=== PATIENT | female | born 1995 | race Caucasian/White ===

== ENCOUNTER 2017-01-09 12:47 | Emergency (ER) | payer OTHER ==
[~2017-01-09] VITALS: Ht 167.6 cm; Wt 55.9 kg
[2017-01-09 12:49] VITALS: TEMP 36.3; Ht 167.6 cm; Wt 55.9 kg
[2017-01-09] MEDS ORDERED: BCPILLS PO (12:59)
[2017-01-09] MEDS ORDERED: SODIUM CHLORIDE 0.9% 1000ML 1,000 ML IV STA (13:09)
[2017-01-09 13:44] LABS: BASO % 0.1 %; BASO ABS # 0.02 K/uL (0-0.2); COMPLETE YES; EOS % 0.2 %; HEMATOCRIT 43.3 % (37-47); IG% 0.2 %; LYMPH % 13.3 %; LYMPH ABS # 1.88 K/uL (1.2-3.4); MEAN CELL VOLUME 93.9 fL (80-100); MEAN CORPUSCULAR HEMOGLOBIN 31.9 pg (25-34); MEAN CORPUSCULAR HGB CONC 33.9 g/dl (32-36); MEAN PLATELET VOLUME 10.3 fL (7.4-10.4); MONO % 9.8 %; NEUT % 76.4 %; PLATELET COUNT 244 K/uL (130-400); RED BLOOD COUNT 4.61 M/uL (4.2-5.4); WHITE BLOOD COUNT 14.12 K/uL (4.8-10.8)
[2017-01-09 14:04] LABS: BUN/CREATININE RATIO 9.1 (10-20); CALCIUM 9.6 mg/dl (8.5-10.1); POTASSIUM 3.6 mmol/L (3.5-5.1)
[2017-01-09 14:05] LABS: PREG INTERNAL NEGATIVE QC NEG CLEAR BACKGROUND; PREG INTERNAL POSITIVE QC POS CONTROL LINE
[2017-01-09 14:24] LABS: URINE APPEARANCE CLOUDY (CLEAR); URINE BILIRUBIN NEG (NEG); URINE COLOR YELLOW; URINE EPITHELIAL CELL AUTO 20-30 /lpf (0-5); URINE NITRITE NEG (NEG); URINE PH 6.5 (4.5-7.5); URINE SPECIFIC GRAVITY 1.016 (1.000-1.030); UROBILINOGEN NEG (NEG)
[2017-01-09 14:27] LABS: MANUAL MICROSCOPIC REQUIRED? NO; REVIEW REQ? NO
--- NOTE | 2017-01-09 14:29 | DIAGNOSTIC IMAGING REPORT ---
APPENDIX ULTRASOUND HISTORY: Right lower quadrant abdominal pain. COMPARISON: None. FINDINGS: Transabdominal scanning of the right lower quadrant was performed. The appendix was not identified. There are no fluid collections or masses within the right lower quadrant. IMPRESSION: The appendix was not identified. Electronically signed by: Nirav Blackwood M.D. 01/09/2017 2:27 PM Dictated Date/Time: 01/09/2017 2:27 PM
[2017-01-09] MEDS ORDERED: OPTIRAY 320 IV PRN (14:45)
--- NOTE | 2017-01-09 16:28 | DIAGNOSTIC IMAGING REPORT ---
ABDOMEN AND PELVIS CT WITH IV AND ORAL CONTRAST CT DOSE: 343.13 mGy.cm HISTORY: Right lower quadrant abdominal pain. TECHNIQUE: Multiaxial CT images of the abdomen and pelvis were performed following the use of intravenous and oral contrast. COMPARISON STUDY: None. FINDINGS: The liver, gallbladder, spleen, adrenal glands, pancreas, and left kidney are unremarkable. Heterogeneous enhancement within the right kidney with mild perinephric fat stranding. There is also urothelial enhancement within the right renal collecting system and right ureter. These findings are consistent with a pyelonephritis. No hydronephrosis. Duplicated right renal collecting system. No retroperitoneal lymphadenopathy. Trace pelvic free fluid. The bladder, uterus, and ovaries are unremarkable. No bowel wall thickening or obstruction. The visualized appendix is normal in caliber. IMPRESSION: 1. Right-sided pyelonephritis. 2. Normal appendix. 3. No bowel wall thickening or obstruction. 4. Trace pelvic free fluid which may be physiologic. Electronically signed by: Nirav Blackwood M.D. 01/09/2017 4:26 PM Dictated Date/Time: 01/09/2017 4:22 PM
[2017-01-09] MEDS ORDERED: CEFTRIAXONE SOD INJ 1 GM in DEXTROSE 5% ADD-VANTAGE 50ML 50 ML IV STA (16:47)
[2017-01-09] MEDS ORDERED: CEFTRIAXONE SOD INJ 1 GM ADDVIAL ONE (17:08)
[2017-01-09] MEDS ORDERED: IBUPROFEN 600 MG TAB PO STA (17:30)
[2017-01-09 17:43] VITALS: BP 125/84; PULSE 88; O2SAT 99
[2017-01-09] MEDS ORDERED: SULF800T23 PO (17:55)
--- NOTE | 2017-01-09 23:05 | EMERGENCY ROOM VISIT NOTE ---
ED Visit Note First contact with patient: 12:51 Chief Complaint: Abdominal pain. History of Present Illness: Ms. Umanzor is a 21 year-old white female complaining of right lower quadrant abdominal pain. Historically patient reports no significant past medical history or abdominal surgeries Patient reports approximately 2-3 days ago she started experiencing vague abdominal complaints in the periumbilical area. She felt she might have pulled an abdominal muscles with exercise. Yesterday morning approximately 28 hours ago she reports she woke up from sleep and now the pain was focal in the right lower quadrant. Since that time her pain has been constant. She was seen at a local urgent care center prior to arrival at the hospital and was informed she may have an appendicitis and needed to come to the emergency department for further evaluation and abdominal CT scan. Currently patient places her discomfort just superior to McBurney's point. She reports she is not able to describe her discomfort. She rates her discomfort 2/ 10. The pain is nonradiating. Her pain worsens slightly with palpation. She has not identified any alleviating factors related to the pain. She has not taken any medications for pain prior to arrival at the hospital. Associated with her pain she reports yesterday she had fevers and chills and this morning she felt like she had a fever before she came to the ED, she has had a mild decrease in appetite, she has been having intermittent nausea without vomiting and she reports she is not moving her bowels as often is normal and feels she may be constipated. Additionally she reports she's been having some increased urinary frequency but no urinary urgency or burning. Patient denies sweats, skin eruptions, skin color changes, upper respiratory tract symptoms, shortness of breath, chest pain, diarrhea, rectal bleeding, black/tarry stools, hematuria, vaginal discharge, painful in accordance, postcoital bleeding, back/flank pain. Review of Systems: As noted above in history of present illness. All body systems were reviewed and found to be negative as noted above. Past Medical History: Patient denies. Current Medications: control. Allergies to Medications: Patient denies. Social History: Patient is currently in University student; she feels safe in her home environment; she denies tobacco use. Physical Examination: Vital Signs: Date Time Temp Pulse Resp B/P Pulse Ox O2 Delivery O2 Flow Rate FiO2 01/09/17 17:43 88 18 125/84 99 Room Air 01/09/17 15:33 87 18 142/79 99 Room Air 01/09/17 14:50 87 18 150/81 99 Room Air 01/09/17 12:49 36.3 106 18 155/76 94 Room Air GENERAL: 21-year-old female in mild moderate distress due to pain, nontoxic- appearing, afebrile and hemodynamically stable. Patient is very anxious and tearful NEUROLOGICAL: Awake, alert and oriented to person, place and time. Answering questions appropriately and following commands. Normal gait. Good hand eye coordination. SKIN: Warm, dry and pink. No soft tissue eruptions or trauma noted. HEENT: Atraumatic and normocephalic. PERRLA. Sclera white and conjunctiva pink. Oral cavity moist and pink. Pharynx is nonerythematous or edematous. Speech normal. No lymphadenopathy. Trachea midline. No jugular venous distention. BACK: No tenderness over the bony spine. Mild right sided CVA tenderness. THORAX: Lungs sounds are clear to auscultation and equal bilaterally with symmetrical chest wall. No wheezing, rales or rhonchi. No crepitus, tenderness , subcutaneous air or deformities noted. HEART: Regular rate and rhythm. No gallops, rubs or murmurs are appreciated. ABDOMEN: Flat and soft with mild tenderness over McBurney's point. Positive bowel sounds in all quadrants. No guarding, rigidity or organomegaly. EXTREMITIES: Moves all extremities well on command and with purpose. All distal neurovascular statuses are intact and equal bilaterally. ED Course: Patient is assessed as noted above. Laboratory Testing: Test 01/09/17 13:30 Range/Units White Blood Count 14.12 4.8-10.8 K/uL Red Blood Count 4.61 4.2-5.4 M/uL Hemoglobin 14.7 12.0-16.0 g/dL Hematocrit 43.3 37-47 % Mean Corpuscular Volume 93.9 80-100 fL Mean Corpuscular Hemoglobin 31.9 25-34 pg Mean Corpuscular Hemoglobin Concent 33.9 32-36 g/dl Platelet Count 244 130-400 K/uL Mean Platelet Volume 10.3 7.4-10.4 fL Neutrophils (%) (Auto) 76.4 % Lymphocytes (%) (Auto) 13.3 % Monocytes (%) (Auto) 9.8 % Eosinophils (%) (Auto) 0.2 % Basophils (%) (Auto) 0.1 % Neutrophils # (Auto) 10.77 1.4-6.5 K/uL Lymphocytes # (Auto) 1.88 1.2-3.4 K/uL Monocytes # (Auto) 1.39 0.11-0.59 K/uL Eosinophils # (Auto) 0.03 0-0.5 K/uL Basophils # (Auto) 0.02 0-0.2 K/uL RDW Standard Deviation 45.8 36.4-46.3 fL RDW Coefficient of Variation 13.3 11.5-14.5 % Immature Granulocyte % (Auto) 0.2 % Immature Granulocyte # (Auto) 0.03 0.00-0.02 K/uL Urine Color YELLOW Urine Appearance CLOUDY CLEAR Urine pH 6.5 4.5-7.5 Urine Specific Walker 1.016 1.000-1.030 Urine Protein 1+ NEG Urine Glucose (UA) NEG NEG Urine Ketones NEG NEG Urine Occult Blood 1+ NEG Urine Nitrite NEG NEG Urine Bilirubin NEG NEG Urine Urobilinogen NEG NEG Urine Leukocyte Esterase LARGE NEG Urine WBC (Auto) >30 0-5 /hpf Urine RBC (Auto) 5-10 0-4 /hpf Urine Hyaline Casts (Auto) 1-5 0-5 /lpf Urine Epithelial Cells (Auto) 20-30 0-5 /lpf Urine Bacteria (Auto) 2+ NEG Sodium Level 139 136-145 mmol/L Potassium Level 3.6 3.5-5.1 mmol/L Chloride Level 104 98-107 mmol/L Carbon Dioxide Level 24 21-32 mmol/L Anion Gap 11.0 3-11 mmol/L Blood Urea Nitrogen 9 7-18 mg/dl Creatinine 1.00 0.60-1.20 mg/dl Est Creatinine Clear Calc Drug Dose 79.9 ml/min Estimated GFR () 94.6 Estimated GFR (Non- 81.6 BUN/Creatinine Ratio 9.1 10-20 Random Glucose 101 70-99 mg/dl Calcium Level 9.6 8.5-10.1 mg/dl Total Bilirubin 1.0 0.2-1 mg/dl Direct Bilirubin 0.2 0-0.2 mg/dl Aspartate Amino Transf (AST/SGOT) 23 15-37 U/L Alanine Aminotransferase (ALT/SGPT) 25 12-78 U/L Alkaline Phosphatase 64 45-117 U/L Total Protein 8.4 6.4-8.2 gm/dl Albumin 4.0 3.4-5.0 gm/dl Lipase 146 73-393 U/L Human Chorionic Gonadotropin, Qual NEG NEG Urine Culture: Pending Appendix Ultrasound: Was reviewed by myself and read by the radiologist showing no appearance of the appendix, abscesses or other masses. Contrast Abdominal/Pelvic CT: Was reviewed by myself and read by the radiologist and shows a right-sided pyelonephritis with normal-appearing appendix, trace pelvic fluid and no bowel wall thickening or obstruction. Patient was hydrated with normal saline; she was offered pain medications and refused initially. She was given 1 g of Rocephin IV for antibiotic therapy and then requested ibuprofen for pain so she was given 600 mg of ibuprofen by mouth. Patient's case was reviewed with Dr. Villa; we agreed on diagnostic approach, treatment, disposition and plan. Patient mother were educated about joseight's findings and instructed on her treatment plan; they verbalized understanding and agreement with this plan. Clinical Impression: Acute right-sided pyelonephritis. Decision-Making: Initially my differential diagnosis I considered appendicitis, ovarian cyst rupture, ovarian torsion, ectopic , kidney stone, pyelonephritis, constipation and other causes. Disposition: Patient discharged home in stable condition accompanied by her mother; prior to departure she was reassessed and subjectively reported she was feeling better but continued to rate her discomfort 3/10. Plan: Patient was encouraged to alternate ibuprofen and acetaminophen as needed for pain. Patient was prescribed Bactrim DS 2 times a day for 10 days. Patient was encouraged to follow-up with her primary care provider at the end of her course of antibiotics for recheck and retesting her urine for infection. Patient was encouraged return the ED for worsening/uncontrolled pain, vomiting, fevers or any new/concerning symptoms.
--- NOTE | 2017-01-11 10:53 | Pharmacy Progress Note ---
ED Pharmacist Culture FollowUp Date of Service: January 11, 2017. Patient was seen in the ER on 01/09/17. The patient was diagnosed with R pyelonephritis and discharged w/ Rx for Bactrim DS 1 PO BID x 10 days. Urine Cx results finalized today and are growing E coli (>100,000 CFU/ml) sensitive to Bactrim. No action required.
== END 2017-01-09 18:17 | disposition home or self-care (01) ==
LOC: C.EDB 12:49 → C.EDC 18:17
DX: N12 Tubulo-interstitial nephritis, not specified as acute or chronic (principal); Z79.3 Long term (current) use of hormonal contraceptives